=== PATIENT | male | born 1960 | race Caucasian/White ===

== ENCOUNTER → 2020-12-19 14:02 | Outpatient (CLI) | payer BC, SELFPAY ==
--- NOTE | ~2020-12-19 | MR_ITS ---
EXAMINATION: MR lumbar spine wo con EXAM DATE: 12/19/2020 14:35 INDICATION: Low back pain, lumbar stenosis. TECHNIQUE: Multi-sequential, multiplanar MR images of the lumbar spine were obtained without contrast . Sagittal T1, T2, T2 fat saturation images. Axial T2 weighted images. There is no prior study for comparison. FINDINGS: Moderate loss of the disc height from L2 through S1. There is 2 to 3 mm retrolisthesis L2 o n L3, 3 to 4 mm retrolisthesis L3 on L4. The conus medullaris terminates at the T12-L1 level and has normal signal intensity and morphology. There are no suspicious marrow signal abnormalities. Paraspi nal soft tissue is unremarkable. Cystic lesion lower pole left kidney, imaged portion consistent with cysts measuring over 5 cm. Level by level evaluation: T12-L1: Disc does not extend beyond the endplate margin. Facet arthropathy: Mild. Neural foraminal stenosis: No stenosis. Central canal stenosis: No stenosis. L1-L2: There is a minimal diffuse disc bulge. Facet arthropathy: Mild. Neural foraminal stenosis: No stenosis. Central canal stenosis: No stenosis. L2-L3: There is a mild to moderate diffuse disc bulge. Facet arthropathy: Moderate. Neural foraminal stenosis: Mild to moderate bilateral. Central canal stenosis: Mild to moderate. L3-L4: There is a moderate diffuse disc bulge. Facet arthropathy: Moderate. Synovial cyst projecting internally from left facet joint. Neural foraminal stenosis: Moderate to severe left, moderate right. Central canal stenosis: Moderate to severe. L4-L5: There is a moderate diffuse disc bulge. Facet arthropathy: Moderate. Neural foraminal stenosis: Moderate bilateral. Central canal stenosis: Moderate. L5-S1: There is a moderate diffuse disc bulge. Facet arthropathy: Moderate to severe. Neural foraminal stenosis: Moderate to severe bilateral . Central canal stenosis: Mild to moderate. IMPRESSION: 1. L3-4 moderate to severe central canal stenosis from bulge, facet arthropathy and left synovial cy st. 2. Neural foramen most narrowed at L5-S1. Reviewed, dictated and finalized at location B. IMPRESSION: 1. L3-4 moderate to severe central canal stenosis from bulge, facet arthropath y and left synovial cyst. 2. Neural foramen most narrowed at L5-S1.
== END ==
PROVIDERS: Visit Provider Chiropractor
DX: M48.061 Spinal stenosis, lumbar region without neurogenic claudication (principal); M47.896 Other spondylosis, lumbar region; M71.38 Other bursal cyst, other site
CPT/HCPCS: 72148

== ENCOUNTER → 2022-10-14 13:59 | Outpatient (CLI) | payer BC, SELFPAY ==
--- NOTE | ~2022-10-14 | MR_ITS ---
. EXAMINATION: MR lumbar spine wo con DATE: 10/14/2022 14:33 INDICATION: Left-sided low back pain. Lumbar spondylosis with radiculopathy. TECHNIQUE: Magnetic resonance imaging (MRI) of the lumbar spine was performed without intravenous con trast. Sequences included sagittal T2-weighted FSE, sagittal T2-weighted FS FSE, sagittal T1-weighted FSE, and axial T2-weighted FSE. COMPARISON: Lumbar spine MRI 12/19/20 FINDINGS: There is 4 mm retrolisthesis of L2 on L3 and L3 on L4 and 5 mm anterolisthesis of L5 on S1. There are Schmorl's nodes at most levels. There is moderately decreased disc height at L2-L3 and sev erely decreased disc height from L3-L4 through L5-S1. The distal spinal cord signal intensity is norm al. The conus medullaris is at L1. There is epidural lipomatosis. There are cysts in left kidney devan uring up to 5.7 cm. The following disc levels are specifically discussed: L1-L2: The disc is bulging. There is moderate right and mild left facet joint osteoarthritis. There i s mild left neural foraminal stenosis. There is mild central canal stenosis. L2-L3: The disc is bulging and has an annular fissure. There is mild bilateral facet joint osteoarthr itis. There is moderate bilateral neural foraminal stenosis. There is mild central canal stenosis. L3-L4: The disc is bulging and has an annular fissure. There is moderate bilateral facet joint osteoa rthritis. There is moderate bilateral neural foraminal stenosis. There is moderate central canal sten osis. L4-L5: The disc is bulging and has an annular fissure. There is severe bilateral facet joint osteoart hritis. There is moderate bilateral neural foraminal stenosis. There is mild central canal stenosis. L5-S1: The disc is bulging and has an annular fissure. There is severe bilateral facet joint osteoart hritis. There is moderate right and mild left neural foraminal stenosis. There is mild central canal stenosis. IMPRESSION: 1. Severe lumbar spondylosis with interval resolution of the left-sided synovial cyst at L3-L4. Reviewed, dictated and finalized at location A. IMPRESSION: 1. Severe lumbar spondylosis with interval resolution of the left-sided synovia l cyst at L3-L4.
== END ==
PROVIDERS: PCP Nurse Practitioner Adult Health; Visit Provider Nurse Practitioner Adult Health
DX: M47.26 Other spondylosis with radiculopathy, lumbar region (principal)
CPT/HCPCS: 72148

== ENCOUNTER 2023-07-30 09:33 | Outpatient (CLI) | payer OTHER, SELFPAY ==
--- NOTE | ~2023-07-30 | CT_ITS ---
CT Scan of the Chest without Contrast: Clinical Indication: Lung cancer screening, tobacco use Technique: Contiguous sections were acquired throughout the chest without intravenous contrast. Dose reduction technique was used on this scan by utilizing automated exposure control and iterative recon struction technique. The dose-length product (DLP) was 201.28 mGy-cm. Findings: There is no evidence of any significant mediastinal, hilar or axillary lymphadenopathy. The mediastin al soft tissues appear normal. There is no evidence of pleural or pericardial effusion. 3 mm left lower lobe pulmonary nodule present. There is linear scarring or atelectasis in the right u pper lobe. Images through the upper abdomen reveal probable low-density bilateral adrenal nodules, compatible wi th adenomas. Impression: Lung RADS 2: Benign appearance. 12 month follow-up screening CT advised. Reviewed, dictated and finalized at [facility]. OGIST PETROLEUM Impression: Lung RADS 2: Benign appearance. 12 month follow-up screening CT advised.
== END 2023-07-30 09:34 ==
LOC: MICIMG 09:34
PROVIDERS: PCP Family Medicine; Visit Provider Family Medicine
DX: Z72.0 Tobacco use (principal)
CPT/HCPCS: 71271